=== PATIENT | male | born 1930 | race Caucasian/White ===

== ENCOUNTER 2017-07-27 16:36 | Inpatient (IN) | payer MEDICARE ==
[2017-07-27 17:45] LABS: BASOPHIL % 0.4 % (0.0-0.4); Basophil (Absolute #) 0.03 (0-0.4); Eosinophil % 3.4 % (0.00-5.0); Eosinophil (Absolute #) 0.29 (0-0.5); Granulocyte Absolute (ANC) 5.78 (1.4-6.9); Granulocytes % 68.7 % (36.0-66.0); Hematocrit 42.5 % (42-50); Hemoglobin 13.8 gm/dl (12.5-18.0); Lymphocyte (Absolute #) 1.56 (1.0-4.6); Lymphocytes % 18.5 % (24.0-44.0); Mean Cell Volume 99.5 fl (78-100); Mean Corpuscular Hemoglobin 32.3 pg (26-32); Mean Corpuscular Hgb Concent. 32.5 g/dl (32-36); Mean Platelet Volume 9.9 fl (6-9.5); Monocyte (Absolute #) 0.76 (0.0-1.3); Platelet Count 277 K/mm3 (150-450); Red Blood Count 4.27 M/mm3 (4.1-5.6); Red Cell Distribution Width 13.9 % (11.5-14.0); White Blood Count 8.4 K/mm3 (4.0-10.5)
[2017-07-27 18:03] LABS: ALBUMIN 3.4 g/dL (3.5-5.0); ALKALINE PHOSPHATASE 125 U/L (38-126); ANION GAP 12.3 MEQ/L (5-15); BLOOD UREA NITROGEN 11 mg/dL (9-20); CHLORIDE 106 mmol/L (98-107); Calcium 8.7 mg/dL (8.4-10.2); Carbon Dioxide 27 mmol/L (22-30); Creatinine 1 1.06 mg/dL (0.66-1.25); Potassium 4.1 mmol/L (3.5-5.1); SGOT/AST 15 U/L (17-59); SGPT/ALT 9 U/L (0-50); SODIUM 141 mmol/L (137-145); Total Protein 6.3 g/dL (6.3-8.2)
[2017-07-27] MEDS ORDERED: TYLENOL 325 MG PO PRN (18:19)
--- NOTE | 2017-07-27 18:24 | PCM.HP.ADD ---
Addendum to History & Physical - History & Physical Addendum Addendum to History & Physical: This certifies that the History & Physical in the electronic chart reflects the current health status of the patient. If there are changes in the H&P these changes/exceptions are listed as follows.
[2017-07-27 18:36] LABS: INR 1.05 (0.8-3.0)
[2017-07-27] MEDS: Sodium Chloride 0.9% 1000 ML 1,000 ML IV SCH (20:20)
[2017-07-27 23:38] LABS: Appearance CLEAR (CLEAR); Bilirubin NEGATIVE (NEGATIVE); Blood NEGATIVE Ery/ul (0-5); Glucose NEGATIVE (NEGATIVE); Ketones NEGATIVE (NEGATIVE); Leukocyte Esterase NEGATIVE (NEGATIVE); Nitrite NEGATIVE (NEGATIVE); Protein,Urine Dip NEGATIVE (Negative); Specific Gravity 1.015 (1.005-1.025); Urobilinogen 1 mg/dL (0-1)
--- NOTE | 2017-07-28 08:32 | XRAY ---
Indication: Short of breath. Confusion. Comparison: None PA/lateral chest demonstrates minimal left base subsegmental atelectasis/scarring. Remaining lungs clear. Heart is not enlarged. Bony thorax intact with mild osteopenia and degenerative changes. Impression: Left base atelectasis/scarring. No acute cardiopulmonary abnormalities.
--- NOTE | 2017-07-28 08:37 | XRAY ---
Indication: Confusion. TIA. History dementia. Multiple contiguous axial images obtained through the head without contrast. Comparison: None Age-appropriate global atrophy and minimal periventricular degenerative micro-ischemia bilaterally. No acute intracranial hemorrhage, abnormal extra-axial fluid collection, or mass effect. Fourth ventricle is midline without hydrocephalus. Bony calvarium intact. Visualized paranasal sinuses and mastoid air cells are clear. Impression: Nonacute senile brain. CT DI 69.25
[2017-07-28] MEDS: Namenda 5 MG PO SCH ×2 (09:20→22:05)
[2017-07-28] MEDS: Risperdal 1 MG PO SCH (09:20)
[2017-07-28] MEDS: Aricept 10 MG PO SCH (09:20)
[2017-07-28] MEDS ORDERED: MEMANTINE HCL 28 MG PO SCH (10:00)
--- NOTE | 2017-07-28 10:37 | XRAY ---
Indication: Left sided hemiparesis. Two-dimensional sonogram and color Doppler imaging of the carotid arteries of the neck performed. Comparison: None Examination of the right carotid circulation demonstrates minimal scattered calcified plaquing in the mid to distal common carotid artery, bulb, and proximal internal carotid artery with lesser degree in the external carotid artery. PSV of the CCA is 81 cm/s. PSV of the ICA is 116 cm/s. ICA/CCA ratio is 1.4. Normal antegrade vertebral artery flow. Examination of the left carotid circulation negative for focal plaquing, critical stenosis, or obstruction. PSV of the CCA is 68 cm/s. PSV of the ICA is 80 cm/s. ICA/CCA ratio is 1.2. Normal antegrade vertebral artery flow. 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 Widely patent left caroti circulation. Velocity measurements and ratios are negative for hemodynamically significant flow-limiting stenosis.
--- NOTE | 2017-07-28 10:50 | PCM.NOTE ---
Date and Time: 07/28/17 1048 Subjective Assessment: still some weakness on left side, - Review of Systems Constitutional: No Fever, No Chills Eyes: No Symptoms Ears, Nose, & Throat: No Symptoms Respiratory: No Cough, No Short Of Breath Cardiac: No Chest Pain, No Edema, No Syncope Abdominal/Gastrointestinal: No Abdominal Pain, No Nausea, No Vomiting, No Diarrhea Genitourinary Symptoms: No Dysuria Musculoskeletal: No Back Pain, No Neck Pain Skin: No Rash Neurological: Focal Weakness, No Dizziness, No Sensory Changes Psychological: No Symptoms Endocrine: No Symptoms Hematologic/Lymphatic: No Symptoms Immunological/Allergic: No Symptoms Objective Exam General Appearance: no apparent distress, alert Neurologic Exam: alert, oriented x 3, cooperative, motor deficits, motor weakness (left side), facial droop, slurred speech Skin Exam: normal color, warm, dry Eye Exam: PERRL, EOMI, eyes nml inspection Ears, Nose, Throat Exam: normal ENT inspection, pharynx normal, moist mucous membranes Neck Exam: normal inspection, non-tender, supple, full range of motion Respiratory Exam: normal breath sounds, lungs clear, No respiratory distress Cardiovascular Exam: regular rate/rhythm, normal heart sounds Gastrointestinal/Abdomen Exam: soft, No tenderness, No mass Extremity Exam: normal inspection, normal range of motion Back Exam: normal inspection, normal range of motion, No CVA tenderness, No vertebral tenderness Male Genitalia Exam: deferred Rectal Exam: deferred OBJECTIVE DATA Vital Signs: Vital Signs - 24 hr Temp Pulse Resp BP Pulse Ox 07/28/17 08:00 97.6 F 59 L 18 126/67 96 07/28/17 04:00 97.4 F 55 L 16 130/63 95 07/28/17 00:00 97.6 F 53 L 17 138/71 96 07/27/17 20:00 98.9 F 65 20 159/85 96 07/27/17 18:07 98.9 F 65 20 159/85 96 07/27/17 17:14 98.9 F 65 20 159/85 96 Oxygen-Last 24 hours O2 Percentage 2 Liters = 28% Pain Assessment - Last Documented Pain Scale Used 0-10 Pain Scale Intake and Output: Intake & Output 07/25/17 07/26/17 07/27/17 07/28/17 11:59 11:59 11:59 11:59 Intake Total 1029 Output Total 450 Balance 579 Weight 71 kg Lab Results: Accuchecks Date 07/28/17 Time 07:30 Accucheck Value: 99 Accucheck Value: 150 Lab Results-Last 24 Hours 07/27/17 07/27/17 07/27/17 Range/Units 17:40 17:40 17:40 WBC 8.4 (4.0-10.5) K/mm3 RBC 4.27 (4.1-5.6) M/mm3 Hgb 13.8 (12.5-18.0) gm/dl Hct 42.5 (42-50) % MCV 99.5 (78-100) fl MCH 32.3 H (26-32) pg MCHC 32.5 (32-36) g/dl RDW 13.9 (11.5-14.0) % Plt Count 277 (150-450) K/mm3 MPV 9.9 H (6-9.5) fl Gran % 68.7 H (36.0-66.0) % Eos # (Auto) 0.29 (0-0.5) Absolute Lymphs (auto) 1.56 (1.0-4.6) Absolute Monos (auto) 0.76 (0.0-1.3) Lymphocytes % 18.5 L (24.0-44.0) % Monocytes % 9.0 (0.0-12.0) % Eosinophils % 3.4 (0.00-5.0) % Basophils % 0.4 (0.0-0.4) % Absolute Granulocytes 5.78 (1.4-6.9) Basophils # 0.03 (0-0.4) PT (8.83-12.87) SECONDS INR (0.8-3.0) Sodium 141 (137-145) mmol/L Potassium 4.1 (3.5-5.1) mmol/L Chloride 106 (98-107) mmol/L Carbon Dioxide 27 (22-30) mmol/L Anion Gap 12.3 (5-15) MEQ/L BUN 11 (9-20) mg/dL Creatinine 1.06 (0.66-1.25) mg/dL Estimated GFR > 60.0 ML/MIN Hemoglobin A1c (4.5-6.0) % Calcium 8.7 (8.4-10.2) mg/dL Total Bilirubin 0.60 (0.2-1.3) mg/dL AST 15 L (17-59) U/L ALT 9 (0-50) U/L Alkaline Phosphatase 125 (38-126) U/L NT-Pro-B Natriuret Pep 398 (0-1800) pg/mL Serum Total Protein 6.3 (6.3-8.2) g/dL Albumin 3.4 L (3.5-5.0) g/dL TSH 3rd Generation 1.970 (0.47-4.68) mIU/L Ur Collection Type Urine Color (YELLOW) Urine Appearance (CLEAR) Urine pH (5-6) Ur Specific [place] (1.005-1.025) Urine Protein (Negative) Urine Ketones (NEGATIVE) Urine Blood (0-5) Yimi/ul Urine Nitrite (NEGATIVE) Urine Bilirubin (NEGATIVE) Urine Urobilinogen (0-1) mg/dL Ur Leukocyte Esterase (NEGATIVE) Urine Glucose (NEGATIVE) mg/dL Specimen Received 07/27/17 07/27/17 07/27/17 Range/Units 17:40 17:40 23:25 WBC (4.0-10.5) K/mm3 RBC (4.1-5.6) M/mm3 Hgb (12.5-18.0) gm/dl Hct (42-50) % MCV (78-100) fl MCH (26-32) pg MCHC (32-36) g/dl RDW (11.5-14.0) % Plt Count (150-450) K/mm3 MPV (6-9.5) fl Gran % (36.0-66.0) % Eos # (Auto) (0-0.5) Absolute Lymphs (auto) (1.0-4.6) Absolute Monos (auto) (0.0-1.3) Lymphocytes % (24.0-44.0) % Monocytes % (0.0-12.0) % Eosinophils % (0.00-5.0) % Basophils % (0.0-0.4) % Absolute Granulocytes (1.4-6.9) Basophils # (0-0.4) PT 12.2 (8.83-12.87) SECONDS INR 1.05 (0.8-3.0) Sodium (137-145) mmol/L Potassium (3.5-5.1) mmol/L Chloride (98-107) mmol/L Carbon Dioxide (22-30) mmol/L Anion Gap (5-15) MEQ/L BUN (9-20) mg/dL Creatinine (0.66-1.25) mg/dL Estimated GFR ML/MIN Hemoglobin A1c 5.50 (4.5-6.0) % Calcium (8.4-10.2) mg/dL Total Bilirubin (0.2-1.3) mg/dL AST (17-59) U/L ALT (0-50) U/L Alkaline Phosphatase (38-126) U/L NT-Pro-B Natriuret Pep (0-1800) pg/mL Serum Total Protein (6.3-8.2) g/dL Albumin (3.5-5.0) g/dL TSH 3rd Generation (0.47-4.68) mIU/L Ur Collection Type VOID Urine Color YELLOW (YELLOW) Urine Appearance CLEAR (CLEAR) Urine pH 6.0 (5-6) Ur Specific [place] 1.015 (1.005-1.025) Urine Protein NEGATIVE (Negative) Urine Ketones NEGATIVE (NEGATIVE) Urine Blood NEGATIVE (0-5) Yimi/ul Urine Nitrite NEGATIVE (NEGATIVE) Urine Bilirubin NEGATIVE (NEGATIVE) Urine Urobilinogen 1 (0-1) mg/dL Ur Leukocyte Esterase NEGATIVE (NEGATIVE) Urine Glucose NEGATIVE (NEGATIVE) mg/dL Specimen Received 07/27/17 1910 Radiology Exams: Radiology Procedures Category Date Time Status CAROTID BILATERAL [US] Routine Exams 07/28/17 10:22 Completed CHEST 2 VIEWS (PA AND LAT) Routine Exams 07/27/17 17:35 Completed ECHO W/2D AND DOPPLER [US] Routine Exams 07/28/17 09:04 Taken HEAD WITHOUT CONTRAST [CT] Routine Exams 07/27/17 17:35 Completed Assessment/Plan (1) Left hemiparesis Current Visit: Yes Status: Acute Code(s): G81.94 - HEMIPLEGIA, UNSPECIFIED AFFECTING LEFT NONDOMINANT SIDE (2) TIA (transient ischemic attack) Current Visit: Yes Status: Acute Onset Date: ~07/28/17 Qualifiers: Transient cerebral ischemia type: unspecified Qualified Code(s): G45.9 - Transient cerebral ischemic attack, unspecified
--- NOTE | 2017-07-28 12:18 | PCM.HP ---
History of Present Illness - Chief Complaint Chief Complaint: weakness on left side of body History of Present Illness: is a 87 year old male.started having difficulty on left side of body, with loss of strength. Patient caregiver found him with slurred speech, unable to walk properly - Review of Systems Constitutional: Lethargy, Weakness, No Fever, No Chills Eyes: No Symptoms Ears, Nose, & Throat: No Symptoms Respiratory: No Cough, No Short Of Breath Cardiac: No Chest Pain, No Edema, No Syncope Abdominal/Gastrointestinal: No Abdominal Pain, No Nausea, No Vomiting, No Diarrhea Genitourinary Symptoms: No Dysuria Musculoskeletal: No Back Pain, No Neck Pain Skin: No Rash Neurological: Dizziness, Focal Weakness, Lethargy, Parasthesia, Sensory Changes , Speech Changes Psychological: Depression Endocrine: No Symptoms Hematologic/Lymphatic: No Symptoms Immunological/Allergic: No Symptoms Medications & Allergies Home Medications: Home Medication List Donepezil HCl 10 mg [Aricept 10 MG] 10 mg PO DAILY 07/27/17 [History Confirmed 07/27/17] Memantine HCl [Memantine HCl ER] 28 mg PO DAILY 07/27/17 [History Confirmed ] Risperidone 1 mg [Risperdal 1 MG] 1 mg PO DAILY 07/27/17 [History Confirmed 07/27/17] Timolol Maleate [Timoptic] 5 ml OP DAILY 07/27/17 [History Confirmed 07/27/17] Allergies/Adverse Reactions: Allergies Allergy/AdvReac Type Severity Reaction Status Date / Time No Known Drug Allergies Allergy Unverified 07/27/17 16:46 - Past Medical History Past Medical History: Yes Neurological History: No Pertinent History ENT History: Cataracts, Glaucoma Cardiac History: No Pertinent History Respiratory History: No Pertinent History Endocrine Medical History: No Pertinent History Musculoskelatal History: No Pertinent History GI Medical History: No Pertinent History History: No Pertinent History Pyscho-Social History: Anxiety, Depression Male Reproductive Disorders: No Pertinent History - Past Surgical History Past Surgical History: Yes Neuro Surgical History: No Pertinent History Cardiac History: No Pertinent History Respiratory Surgery: No Pertinent History GI Surgical History: Appendectomy Genitourinary Surgical Hx: No Pertinent History Musculskeletal Surgical Hx: No Pertinent History Male Surgical History: No Pertinent History - Social History Smoking Status: Never smoker Exposure to second hand smoke: Yes Alcohol: None - Physical Exam Vital Signs: Vital Signs - 24 hr Temp Pulse Resp BP Pulse Ox 07/28/17 12:00 18 07/28/17 08:00 97.6 F 59 L 18 126/67 96 07/28/17 04:00 97.4 F 55 L 16 130/63 95 07/28/17 00:00 97.6 F 53 L 17 138/71 96 07/27/17 20:00 98.9 F 65 20 159/85 96 07/27/17 18:07 98.9 F 65 20 159/85 96 07/27/17 17:14 98.9 F 65 20 159/85 96 Oxygen-Last 24 hours O2 Percentage 2 Liters = 28% General Appearance: no apparent distress, alert Neurologic Exam: alert, motor deficits, sensory deficit, disoriented, facial droop, abnormal crawler tractor operator II-XII Eye Exam: PERRL/EOMI, eyes nml inspection Ears, Nose, Throat Exam: normal ENT inspection, TMs normal, pharynx normal, moist mucous membranes Neck Exam: normal inspection, non-tender, supple, full range of motion Respiratory Exam: normal breath sounds, lungs clear, No respiratory distress Cardiovascular Exam: regular rate/rhythm, normal heart sounds, normal peripheral pulses Gastrointestinal/Abdomen Exam: soft, normal bowel sounds, No tenderness, No mass Back Exam: normal inspection, normal range of motion, No CVA tenderness, No vertebral tenderness Extremity Exam: normal inspection, normal range of motion, pelvis stable Skin Exam: normal color, warm, dry, No rash Lymphatic Exam: No adenopathy Results - Labs Lab/Micro Results: Accuchecks Date 07/28/17 Time 07:30 Accucheck Value: 99 Accucheck Value: 150 Lab Results-Last 24 Hours 07/27/17 07/27/17 07/27/17 Range/Units 17:40 17:40 17:40 WBC 8.4 (4.0-10.5) K/mm3 RBC 4.27 (4.1-5.6) M/mm3 Hgb 13.8 (12.5-18.0) gm/dl Hct 42.5 (42-50) % MCV 99.5 (78-100) fl MCH 32.3 H (26-32) pg MCHC 32.5 (32-36) g/dl RDW 13.9 (11.5-14.0) % Plt Count 277 (150-450) K/mm3 MPV 9.9 H (6-9.5) fl Gran % 68.7 H (36.0-66.0) % Eos # (Auto) 0.29 (0-0.5) Absolute Lymphs (auto) 1.56 (1.0-4.6) Absolute Monos (auto) 0.76 (0.0-1.3) Lymphocytes % 18.5 L (24.0-44.0) % Monocytes % 9.0 (0.0-12.0) % Eosinophils % 3.4 (0.00-5.0) % Basophils % 0.4 (0.0-0.4) % Absolute Granulocytes 5.78 (1.4-6.9) Basophils # 0.03 (0-0.4) PT (8.83-12.87) SECONDS INR (0.8-3.0) Sodium 141 (137-145) mmol/L Potassium 4.1 (3.5-5.1) mmol/L Chloride 106 (98-107) mmol/L Carbon Dioxide 27 (22-30) mmol/L Anion Gap 12.3 (5-15) MEQ/L BUN 11 (9-20) mg/dL Creatinine 1.06 (0.66-1.25) mg/dL Estimated GFR > 60.0 ML/MIN Hemoglobin A1c (4.5-6.0) % Calcium 8.7 (8.4-10.2) mg/dL Total Bilirubin 0.60 (0.2-1.3) mg/dL AST 15 L (17-59) U/L ALT 9 (0-50) U/L Alkaline Phosphatase 125 (38-126) U/L NT-Pro-B Natriuret Pep 398 (0-1800) pg/mL Serum Total Protein 6.3 (6.3-8.2) g/dL Albumin 3.4 L (3.5-5.0) g/dL TSH 3rd Generation 1.970 (0.47-4.68) mIU/L Ur Collection Type Urine Color (YELLOW) Urine Appearance (CLEAR) Urine pH (5-6) Ur Specific [place] (1.005-1.025) Urine Protein (Negative) Urine Ketones (NEGATIVE) Urine Blood (0-5) Yimi/ul Urine Nitrite (NEGATIVE) Urine Bilirubin (NEGATIVE) Urine Urobilinogen (0-1) mg/dL Ur Leukocyte Esterase (NEGATIVE) Urine Glucose (NEGATIVE) mg/dL Specimen Received 07/27/17 07/27/17 07/27/17 Range/Units 17:40 17:40 23:25 WBC (4.0-10.5) K/mm3 RBC (4.1-5.6) M/mm3 Hgb (12.5-18.0) gm/dl Hct (42-50) % MCV (78-100) fl MCH (26-32) pg MCHC (32-36) g/dl RDW (11.5-14.0) % Plt Count (150-450) K/mm3 MPV (6-9.5) fl Gran % (36.0-66.0) % Eos # (Auto) (0-0.5) Absolute Lymphs (auto) (1.0-4.6) Absolute Monos (auto) (0.0-1.3) Lymphocytes % (24.0-44.0) % Monocytes % (0.0-12.0) % Eosinophils % (0.00-5.0) % Basophils % (0.0-0.4) % Absolute Granulocytes (1.4-6.9) Basophils # (0-0.4) PT 12.2 (8.83-12.87) SECONDS INR 1.05 (0.8-3.0) Sodium (137-145) mmol/L Potassium (3.5-5.1) mmol/L Chloride (98-107) mmol/L Carbon Dioxide (22-30) mmol/L Anion Gap (5-15) MEQ/L BUN (9-20) mg/dL Creatinine (0.66-1.25) mg/dL Estimated GFR ML/MIN Hemoglobin A1c 5.50 (4.5-6.0) % Calcium (8.4-10.2) mg/dL Total Bilirubin (0.2-1.3) mg/dL AST (17-59) U/L ALT (0-50) U/L Alkaline Phosphatase (38-126) U/L NT-Pro-B Natriuret Pep (0-1800) pg/mL Serum Total Protein (6.3-8.2) g/dL Albumin (3.5-5.0) g/dL TSH 3rd Generation (0.47-4.68) mIU/L Ur Collection Type VOID Urine Color YELLOW (YELLOW) Urine Appearance CLEAR (CLEAR) Urine pH 6.0 (5-6) Ur Specific [place] 1.015 (1.005-1.025) Urine Protein NEGATIVE (Negative) Urine Ketones NEGATIVE (NEGATIVE) Urine Blood NEGATIVE (0-5) Yimi/ul Urine Nitrite NEGATIVE (NEGATIVE) Urine Bilirubin NEGATIVE (NEGATIVE) Urine Urobilinogen 1 (0-1) mg/dL Ur Leukocyte Esterase NEGATIVE (NEGATIVE) Urine Glucose NEGATIVE (NEGATIVE) mg/dL Specimen Received 07/27/17 2315 Accuchecks Date 07/28/17 Time 07:30 Accucheck Value: 99 Accucheck Value: 150 - Radiology Impressions Radiology Exams & Impressions: Radiology Procedures Category Date Time Status CAROTID BILATERAL [US] Routine Exams 07/28/17 10:22 Completed CHEST 2 VIEWS (PA AND LAT) Routine Exams 07/27/17 17:35 Completed ECHO W/2D AND DOPPLER [US] Routine Exams 07/28/17 09:04 Taken HEAD WITHOUT CONTRAST [CT] Routine Exams 07/27/17 17:35 Completed Assessment/Plan (1) Left hemiparesis Current Visit: Yes Status: Acute Code(s): G81.94 - HEMIPLEGIA, UNSPECIFIED AFFECTING LEFT NONDOMINANT SIDE (2) TIA (transient ischemic attack) Current Visit: Yes Status: Acute Onset Date: ~07/28/17 Qualifiers: Transient cerebral ischemia type: unspecified Qualified Code(s): G45.9 - Transient cerebral ischemic attack, unspecified
[2017-07-28] MEDS: PLAVIX 75 MG Tablet PO SCH (12:51)
[2017-07-28] MEDS: TIMOPTIC 0.5% 5 ML OPHTHALMIC OP SCH (14:20)
--- NOTE | 2017-07-28 14:32 | XRAY ---
Indication: Confusion. Possible CVA. Sagittal, coronal, and axial MRI brain was performed using pre-and post T1, T2, FLAIR, diffusion, and ADC sequences. 10 cc Magnevist contrast used. Comparison: None Prominent bilateral basal ganglia Virchow Benedicto spaces. There is age-appropriate global atrophy and mild periventricular degenerative micro-ischemia signal bilaterally. 3-4 mm subcortical focus of restricted signal in the left frontal lobe favoring acute micro-ischemia. No acute intracranial hemorrhage, abnormal extra-axial fluid collection, or mass effect. Following gadolinium, there is no abnormal enhancing intra or extra-axial mass. Fourth ventricle is midline without hydrocephalus. 7/8 cranial nerve complex bilaterally symmetric. Normal flow void signal within the major intracerebral circulation. Dolichoectatic distal left vertebral artery. Normal appearing craniocervical junction and sella turcica. Paranasal sinuses are clear. Impression: 1. Tiny acute micro-ischemia in the left frontal lobe. No acute hemorrhage or mass effect. 2. Normal aging brain as evidenced by atrophy and degenerative micro-ischemia. 3. Negative contrast exam.
--- NOTE | 2017-07-29 08:59 | PCM.NOTE ---
Date and Time: 07/29/17857 Subjective Assessment: still some weakness on left side - Review of Systems Constitutional: No Fever, No Chills Eyes: No Symptoms Ears, Nose, & Throat: No Symptoms Respiratory: No Cough, No Short Of Breath Cardiac: No Chest Pain, No Edema, No Syncope Abdominal/Gastrointestinal: No Abdominal Pain, No Nausea, No Vomiting, No Diarrhea Genitourinary Symptoms: No Dysuria Musculoskeletal: No Back Pain, No Neck Pain Skin: No Rash Neurological: Focal Weakness, Gait Changes, No Dizziness, No Sensory Changes Psychological: No Symptoms Endocrine: No Symptoms Hematologic/Lymphatic: No Symptoms Immunological/Allergic: No Symptoms Objective Exam General Appearance: no apparent distress, alert Neurologic Exam: alert, oriented x 3, cooperative, normal mood/affect, sensation nml, motor deficits Skin Exam: normal color, warm, dry Eye Exam: PERRL, EOMI, eyes nml inspection Ears, Nose, Throat Exam: normal ENT inspection, pharynx normal, moist mucous membranes Neck Exam: normal inspection, non-tender, supple, full range of motion Respiratory Exam: normal breath sounds, lungs clear, No respiratory distress Cardiovascular Exam: regular rate/rhythm, normal heart sounds Gastrointestinal/Abdomen Exam: soft, No tenderness, No mass Extremity Exam: normal inspection, normal range of motion Back Exam: normal inspection, normal range of motion, No CVA tenderness, No vertebral tenderness Male Genitalia Exam: deferred Rectal Exam: deferred OBJECTIVE DATA Vital Signs: Vital Signs - 24 hr Temp Pulse Resp BP Pulse Ox 07/29/17 07:29 97.9 F 56 L 18 141/76 96 07/29/17 04:00 98.2 F 60 18 169/83 96 07/29/17 00:00 16 07/28/17 23:30 98.2 F 69 16 143/78 95 07/28/17 20:03 98.4 F 65 18 168/81 96 07/28/17 20:00 18 07/28/17 16:00 98.2 F 54 L 18 198/85 97 07/28/17 12:00 97.8 F 59 L 18 179/84 96 Pain Assessment - Last Documented Pain Scale Used 0-10 Pain Scale Intake and Output: Intake & Output 07/26/17 07/27/17 07/28/17 07/29/17 11:59 11:59 11:59 11:59 Intake Total 1029 1549 Output Total 450 0610 Balance 579 -301 Weight 71 kg Radiology Exams: Radiology Procedures Category Date Time Status CAROTID BILATERAL [US] Routine Exams 07/28/17 10:22 Completed CHEST 2 VIEWS (PA AND LAT) Routine Exams 07/27/17 17:35 Completed ECHO W/2D AND DOPPLER [US] Routine Exams 07/28/17 09:04 Taken HEAD WITHOUT CONTRAST [CT] Routine Exams 07/27/17 17:35 Completed MRI BRAIN W & W/O CONTRAST [MRI] Urgent Exams 07/28/17 12:22 Completed Multi-Disciplinary Progress Notes: Multi-Disciplinary Progress Notes 07/28/17 12:45 (created 07/28/17 13:33) Case Management Note by Peace Ramsey REFERRAL CALLED TO [facility]. FAXED INFORMATION PER REQUEST. SHERICE REPORTS THAT THEY DON'T HAVE ANY MALE BEDS AT THIS TIME. WILL CALL BACK WITH INFORMATION REGARDING BED AVAILABILITY. Initialized on 07/28/17 13:33 - END OF NOTE 07/28/17 12:15 (created 07/28/17 13:28) Case Management Note by Peace Ramsey DR. ROUNDED AND EVALUATED PT, PLAN FOR MRI HEAD TODAY PT CONTINUES TO DISPLAY L SIDE WEAKNESS AND NOTED L FACIAL DROOP. ADDING PLAVIX 75MG PO DAILY. DISCUSSED REHAB STAY WITH PT. WILL PLAN TO TRANSITION TO [facility] ON DISCHARGE. Initialized on 07/28/17 13:28 - END OF NOTE Assessment/Plan (1) Left hemiparesis Current Visit: Yes Status: Acute Assessment & Plan: improving Code(s): G81.94 - HEMIPLEGIA, UNSPECIFIED AFFECTING LEFT NONDOMINANT SIDE (2) TIA (transient ischemic attack) Current Visit: Yes Status: Acute Onset Date: ~07/28/17 Qualifiers: Transient cerebral ischemia type: unspecified Qualified Code(s): G45.9 - Transient cerebral ischemic attack, unspecified
[2017-07-29] MEDS: Aricept 10 MG PO SCH (09:26)
[2017-07-29] MEDS: Namenda 5 MG PO SCH ×2 (09:26→22:04)
[2017-07-29] MEDS: PLAVIX 75 MG Tablet PO SCH (09:26)
[2017-07-29] MEDS: Risperdal 1 MG PO SCH (09:26)
[2017-07-29] MEDS: TIMOPTIC 0.5% 5 ML OPHTHALMIC OP SCH (09:27)
[2017-07-29] MEDS: Sodium Chloride 0.9% 1000 ML 1,000 ML IV SCH (11:51)
[2017-07-30] MEDS: Sodium Chloride 0.9% 1000 ML 1,000 ML IV SCH (07:59)
[2017-07-30 08:14] VITALS: O2SAT 96
--- NOTE | 2017-07-30 09:18 | PCM.NOTE ---
Date and Time: 07/30/17915 Subjective Assessment: doing little better - Review of Systems Constitutional: No Fever, No Chills Eyes: No Symptoms Ears, Nose, & Throat: No Symptoms Respiratory: No Cough, No Short Of Breath Cardiac: No Chest Pain, No Edema, No Syncope Abdominal/Gastrointestinal: No Abdominal Pain, No Nausea, No Vomiting, No Diarrhea Genitourinary Symptoms: No Dysuria Musculoskeletal: No Back Pain, No Neck Pain Skin: No Rash Neurological: Focal Weakness, No Dizziness, No Sensory Changes Psychological: No Symptoms Endocrine: No Symptoms Hematologic/Lymphatic: No Symptoms Immunological/Allergic: No Symptoms Objective Exam General Appearance: no apparent distress, alert Neurologic Exam: alert, oriented x 3, cooperative, normal mood/affect, sensation nml, motor deficits Skin Exam: normal color, warm, dry Eye Exam: PERRL, EOMI, eyes nml inspection Ears, Nose, Throat Exam: normal ENT inspection, pharynx normal, moist mucous membranes Neck Exam: normal inspection, non-tender, supple, full range of motion Respiratory Exam: normal breath sounds, lungs clear, No respiratory distress Cardiovascular Exam: regular rate/rhythm, normal heart sounds Gastrointestinal/Abdomen Exam: soft, No tenderness, No mass Extremity Exam: normal inspection, normal range of motion Back Exam: normal inspection, normal range of motion, No CVA tenderness, No vertebral tenderness Male Genitalia Exam: deferred Rectal Exam: deferred OBJECTIVE DATA Vital Signs: Vital Signs - 24 hr Temp Pulse Resp BP Pulse Ox 07/30/17 08:00 98.2 F 58 L 16 140/71 96 07/30/17 04:23 97.9 F 66 18 118/60 97 07/30/17 04:00 16 07/30/17 00:00 16 07/29/17 23:46 98.2 F 65 16 114/65 97 07/29/17 20:09 98.7 F 70 18 171/83 97 07/29/17 20:00 18 07/29/17 16:00 98.5 F 68 16 159/77 97 07/29/17 12:00 18 07/29/17 11:26 97.9 F 60 18 158/78 94 L Pain Assessment - Last Documented Pain Intensity 0 Pain Scale Used 0-10 Pain Scale Intake and Output: Intake & Output 07/27/17 07/28/17 07/29/17 07/30/17 11:59 11:59 11:59 11:59 Intake Total 1029 1549 1513 Output Total 034 3670 425 Balance 579 -301 1088 Weight 71 kg Radiology Exams: Radiology Procedures Category Date Time Status CAROTID BILATERAL [US] Routine Exams 07/28/17 10:22 Completed ECHO W/2D AND DOPPLER [US] Routine Exams 07/28/17 09:04 Taken MRI BRAIN W & W/O CONTRAST [MRI] Urgent Exams 07/28/17 12:22 Completed Assessment/Plan (1) Left hemiparesis Current Visit: Yes Status: Acute Code(s): G81.94 - HEMIPLEGIA, UNSPECIFIED AFFECTING LEFT NONDOMINANT SIDE (2) TIA (transient ischemic attack) Current Visit: Yes Status: Acute Onset Date: ~07/28/17 Qualifiers: Transient cerebral ischemia type: unspecified Qualified Code(s): G45.9 - Transient cerebral ischemic attack, unspecified
[2017-07-30] MEDS: PLAVIX 75 MG Tablet PO SCH (09:30)
[2017-07-30] MEDS: Aricept 10 MG PO SCH (09:30)
[2017-07-30] MEDS: TIMOPTIC 0.5% 5 ML OPHTHALMIC OP SCH (09:30)
[2017-07-30] MEDS: Risperdal 1 MG PO SCH (09:30)
[2017-07-30] MEDS: Namenda 5 MG PO SCH (09:30)
--- NOTE | 2017-07-30 10:02 | PCM.DS ---
Discharge Summary Date of Admission: 07/27/17 16:36 Admitting Physician: JACKIE MARTINEZ Primary Care Provider: JACKIE MARTINEZ Allergies Allergies No Known Drug Allergies Allergy (Unverified 07/27/17 16:46) Hospital Summary - Hospital Course Hospital Course: Chief Complaint Diagnosis weakness on left side of body Allergies Allergy/AdvReac Type Severity Reaction Status Date / Time No Known Drug Allergies Allergy Unverified 07/27/17 16:46 Vital Signs (Last 24 hours) Temp Pulse Resp BP Pulse Ox 07/30/17 08:00 98.2 F 58 L 16 140/71 96 07/30/17 04:23 97.9 F 66 18 118/60 97 07/30/17 04:00 16 07/30/17 00:00 16 07/29/17 23:46 98.2 F 65 16 114/65 97 07/29/17 20:09 98.7 F 70 18 171/83 97 07/29/17 20:00 18 07/29/17 16:00 98.5 F 68 16 159/77 97 07/29/17 12:00 18 07/29/17 11:26 97.9 F 60 18 158/78 94 L Home Medications Medication Instructions Recorded Confirmed Last Taken Type Donepezil HCl 10 mg [Aricept 10 10 mg PO DAILY 07/27/17 07/27/17 07/27/17 History MG] Memantine HCl [Memantine HCl ER] 28 mg PO DAILY 07/27/17 07/27/17 07/27/17 History Risperidone 1 mg [Risperdal 1 1 mg PO DAILY 07/27/17 07/27/17 07/27/17 History MG] Timolol Maleate [Timoptic] 5 ml OP DAILY 07/27/17 07/27/17 07/27/17 History Current Medications Generic Name Dose Route Start Last Admin Trade Name Freq PRN Reason Stop Dose Admin Acetaminophen 325 mg 07/27/17 18:19 Tylenol 325 Mg PO 08/26/17 18:18 Q4H PRN PRN PAIN, FEVER, HEADACHE Clopidogrel Bisulfate 75 mg 07/28/17 13:00 07/30/17 09:30 Plavix 75 Mg Tablet PO 08/27/17 12:59 75 mg DAILY EMILY Administration Donepezil HCl 10 mg 07/28/17 10:00 07/30/17 09:30 Aricept 10 Mg PO 08/27/17 09:59 10 mg DAILY EMILY Administration Sodium Chloride 1,000 mls @ 50 mls/hr 07/27/17 18:30 07/30/17 07:59 Sodium Chloride 0.9% 1000 Ml IV 08/26/17 18:29 50 mls/hr .Q20H EMILY Administration Memantine 10 mg 07/28/17 10:00 07/30/17 09:30 Namenda 5 Mg PO 08/27/17 09:59 10 mg BID EMILY Administration Risperidone 1 mg 07/28/17 10:00 07/30/17 09:30 Risperdal 1 Mg PO 08/27/17 09:59 1 mg DAILY EMILY Administration Timolol Maleate 5 ml 07/28/17 10:00 07/30/17 09:30 Timoptic 0.5% 5 Ml Ophthalmic OP 08/27/17 09:59 5 ml DAILY EMILY Administration Intake & Output (Last 24 hours) 07/27/17 07/28/17 07/29/17 07/30/17 11:59 11:59 11:59 11:59 Intake Total 1029 1549 1513 Output Total 450 1850 425 Balance 579 -301 1088 Weight 71 kg Microbiology Results (Last 24 hours) 07/27/17 18:50 Blood Blood Culture Gram Stain - Pending 07/27/17 18:50 Blood Blood Culture - Preliminary NO GROWTH TO DATE - Vitals & Intake/Output Vital Signs: Vital Signs Temperature 98.2 F 07/30/17 08:00 Pulse Rate 58 L 07/30/17 08:00 Respiratory Rate 16 07/30/17 08:00 Blood Pressure 140/71 07/30/17 08:00 O2 Sat by Pulse Oximetry 96 07/30/17 08:00 Oxygen-Last Documented O2 Percentage 2 Liters = 28% Intake & Output: Intake & Output 07/27/17 07/28/17 07/29/17 07/30/17 11:59 11:59 11:59 11:59 Intake Total 1029 1549 1513 Output Total 450 1850 425 Balance 579 -301 1088 Weight 71 kg - Lab Result Diagrams: 07/27/17 17:40 07/27/17 17:40 Micro Results-Entire Visit: Microbiology 07/27/17 18:50 Blood Culture - Preliminary Blood NO GROWTH TO DATE - Radiology Exams Ordered Rad Exams-Entire Visit: Radiology Procedures Category Date Time Status CAROTID BILATERAL [US] Routine Exams 07/28/17 10:22 Completed ECHO W/2D AND DOPPLER [US] Routine Exams 07/28/17 09:04 Taken MRI BRAIN W & W/O CONTRAST [MRI] Urgent Exams 07/28/17 12:22 Completed - Procedures and Test Procedures and Tests throughout Hospitalization: Therapy Orders & Screens 07/27/17 18:17 EKG STAT Comment: Diagnosis: TIA 07/27/17 18:18 PT Eval & Treat (MD Order) ROUTINE Reason for Eval:: strengthening Diagnosis: TIA Discharge Exam General Appearance: no apparent distress, alert Neurologic Exam: alert, oriented x 3, cooperative, normal mood/affect, nml cerebellar function, sensation nml, No motor deficits Skin Exam: normal color, warm, dry Eye Exam: PERRL, EOMI, eyes nml inspection Ears, Nose, Throat Exam: normal ENT inspection, pharynx normal, moist mucous membranes Neck Exam: normal inspection, non-tender, supple, full range of motion Respiratory Exam: normal breath sounds, lungs clear, No respiratory distress Cardiovascular Exam: regular rate/rhythm, normal heart sounds Gastrointestinal/Abdomen Exam: soft, No tenderness, No mass Extremity Exam: normal inspection, normal range of motion Back Exam: normal inspection, normal range of motion, No CVA tenderness, No vertebral tenderness Male Genitalia Exam: deferred Rectal Exam: deferred Final Diagnosis/Problem List - Final Discharge Diagnosis/Problem (1) Left hemiparesis Current Visit: Yes Status: Acute (2) TIA (transient ischemic attack) Current Visit: Yes Status: Acute Onset Date: ~07/28/17 - Discharge Discharge Date: 07/30/17 Disposition: Swing Bed @ [facility] Condition: Stable Prescriptions: No Action Risperidone 1 mg [Risperdal 1 MG] 1 mg PO DAILY Memantine HCl [Memantine HCl ER] 28 mg PO DAILY Donepezil HCl 10 mg [Aricept 10 MG] 10 mg PO DAILY Timolol Maleate [Timoptic] 5 ml OP DAILY Follow up with: JACKIE MARTINEZ MD [Primary Care Provider] - 1 Week
[2017-07-30 11:28] VITALS: BP 130/69; PULSE 62
[2017-07-30] MEDS ORDERED: ROCEPHIN 1 Gm-D5w 50 ml Bag** 1 G/50 ML IVPB IV SCH (12:00)
--- NOTE | 2017-08-03 11:10 | ECHO ---
Transthoracic echocardiographic examination and color Doppler was done on 07/28/2017. INDICATION: Stroke. IMPRESSION: 1) NO DEFINITE REGIONAL WALL MOTION ABNORMALITY. ESTIMATED GLOBAL LEFT VENTRICULAR EJECTION FRACTION ABOUT 60%. 2) MILD MITRAL REGURGITATION. 3) TRACE TRICUSPID REGURGITATION. RIGHT VENTRICULAR SYSTOLIC PRESSURE OF 36 MM OF MERCURY. 4) TRACE PULMONIC INSUFFICIENCY. 5) LEFT ATRIAL ENLARGEMENT. 6) LEFT VENTRICULAR DIASTOLIC DYSFUNCTION. 7) LEFT VENTRICULAR HYPERTROPHY. The left ventricle is visualized and demonstrated adequate motion of all the segments. Estimated global left ventricular ejection fraction is 60%. There is mild left ventricular hypertrophy. The mitral valve is seen and this opens adequately. There is mild mitral regurgitation. Left atrium is mildly enlarged. The aortic valve is sclerotic. The right side chambers are normal. There is trace tricuspid regurgitation. Right ventricular systolic pressure of 26 mm of Mercury. There is trace pulmonic insufficiency. Tissue Doppler study of the lateral mitral annulus is suggestive of left ventricular diastolic dysfunction.
== END 2017-07-30 12:30 | disposition swing bed (61) | DRG 57 ==
LOC: MERGE 16:36 → MED SURG 16:36
PROVIDERS: ADMIT General Practice; ATTEND General Practice
DX: G81.94 Hemiplegia, unspecified affecting left nondominant side (principal); G45.9 Transient cerebral ischemic attack, unspecified; F41.8 Other specified anxiety disorders
CPT/HCPCS: 36415; 70450; 70553; 71046; 80053; 81002; 83036; 83880; 84443; 85025; 85610; 87040; 93005; 93306; 93880; A9270-GY

== ENCOUNTER 2017-07-30 12:30 | Inpatient (IN) | payer MEDICARE ==
[2017-07-30] MEDS ORDERED: TYLENOL 325 MG PO PRN (13:24)
[2017-07-30] MEDS ORDERED: ROCEPHIN 1 Gm-D5w 50 ml Bag** 1 G/50 ML IVPB IV SCH (13:24)
[2017-07-30] MEDS ORDERED: Sodium Chloride 0.9% 10 ML FLUSH Syringe IV PRN (13:30)
[2017-07-30] MEDS: Sodium Chloride 0.9% 10 ML FLUSH Syringe IV SCH ×2 (14:00→22:41)
[2017-07-30] MEDS: ROCEPHIN 1 Gm-D5w 50 ml Bag** 1 G/50 ML IVPB IV SCH (14:19)
[2017-07-30 18:22] LABS: Appearance CLEAR (CLEAR); Bilirubin NEGATIVE (NEGATIVE); Blood 250 Ery/ul (0-5); Glucose NEGATIVE (NEGATIVE); Ketones NEGATIVE (NEGATIVE); Leukocyte Esterase NEGATIVE (NEGATIVE); Nitrite NEGATIVE (NEGATIVE); Protein,Urine Dip NEGATIVE (Negative); Urobilinogen NORMAL mg/dL (0-1)
[2017-07-30 18:23] LABS: RBC 50-100 /HPF (0-2)
[2017-07-30] MEDS: Namenda 5 MG PO SCH (22:40)
[2017-07-31] MEDS ORDERED: D50W 50 ml Abboject IV ONE (05:50)
[2017-07-31] MEDS: Sodium Chloride 0.9% 10 ML FLUSH Syringe IV SCH ×3 (06:16→21:38)
--- NOTE | 2017-07-31 08:52 | PCM.NOTE ---
Date and Time: 07/31/17 0851 Subjective Assessment: doing ok - Review of Systems Constitutional: No Fever, No Chills Eyes: No Symptoms Ears, Nose, & Throat: No Symptoms Respiratory: No Cough, No Short Of Breath Cardiac: No Chest Pain, No Edema, No Syncope Abdominal/Gastrointestinal: No Abdominal Pain, No Nausea, No Vomiting, No Diarrhea Genitourinary Symptoms: No Dysuria Musculoskeletal: No Back Pain, No Neck Pain Skin: No Rash Neurological: No Dizziness, No Focal Weakness, No Sensory Changes Psychological: No Symptoms Endocrine: No Symptoms Hematologic/Lymphatic: No Symptoms Immunological/Allergic: No Symptoms Objective Exam General Appearance: no apparent distress, alert Neurologic Exam: alert, oriented x 3, cooperative, normal mood/affect, nml cerebellar function, sensation nml, No motor deficits Skin Exam: normal color, warm, dry Eye Exam: PERRL, EOMI, eyes nml inspection Ears, Nose, Throat Exam: normal ENT inspection, pharynx normal, moist mucous membranes Neck Exam: normal inspection, non-tender, supple, full range of motion Respiratory Exam: normal breath sounds, lungs clear, No respiratory distress Cardiovascular Exam: regular rate/rhythm, normal heart sounds Gastrointestinal/Abdomen Exam: soft, No tenderness, No mass Extremity Exam: normal inspection, normal range of motion Back Exam: normal inspection, normal range of motion, No CVA tenderness, No vertebral tenderness Male Genitalia Exam: deferred Rectal Exam: deferred OBJECTIVE DATA Vital Signs: Vital Signs - 24 hr Temp Pulse Resp BP Pulse Ox 07/31/17 07:33 98.2 F 67 18 137/77 95 07/30/17 19:58 97.8 F 70 18 126/59 96 07/30/17 15:29 98 F 66 20 126/66 95 07/30/17 13:31 98.1 F 62 20 136/67 96 Pain Assessment - Last Documented Pain Scale Used 0-10 Pain Scale Intake and Output: Intake & Output 07/28/17 07/29/17 07/30/17 07/31/17 11:59 11:59 11:59 11:59 Intake Total 980 Output Total 400 Balance 580 Weight 70.2 kg Lab Results: Lab Results-Last 24 Hours 07/30/17 Range/Units 16:45 Ur Collection Type CLEAN CATCH Urine Color YELLOW (YELLOW) Urine Appearance CLEAR (CLEAR) Urine pH 7.0 (5-6) Ur Specific [place] 1.010 (1.005-1.025) Urine Protein NEGATIVE (Negative) Urine Ketones NEGATIVE (NEGATIVE) Urine Blood 250 (0-5) Yimi/ul Urine Nitrite NEGATIVE (NEGATIVE) Urine Bilirubin NEGATIVE (NEGATIVE) Urine Urobilinogen NORMAL (0-1) mg/dL Ur Leukocyte Esterase NEGATIVE (NEGATIVE) Urine Microscopic RBC 50-100 (0-2) /HPF Urine Glucose NEGATIVE (NEGATIVE) mg/dL Specimen Received 07/30/17 1645 Multi-Disciplinary Progress Notes: Multi-Disciplinary Progress Notes 07/30/17 13:00 (created 07/30/17 13:01) Case Management Note by Peace Ramsey SPOKE WITH REP AT [facility]. PLAN FOR PT TO TRANSITION THERE ON DISCHARGE, HOWEVER NO MALE BEDS AVAILABLE TODAY. WILL LIKELY BE 2-3 DAYS. WILL PLAN FOR SWING BED TODAY UNTIL BED AVAIL AT [facility]. Initialized on 07/30/17 13:01 - END OF NOTE Assessment/Plan (1) Debility, unspecified Current Visit: Yes Status: Acute Code(s): R53.81 - OTHER MALAISE (2) Crescendo transient ischemic attacks Current Visit: No Status: Acute Onset Date: ~07/28/17 Qualifiers: Transient cerebral ischemia type: unspecified Qualified Code(s): G45.9 - Transient cerebral ischemic attack, unspecified (3) Left hemiparesis Current Visit: No Status: Resolved Code(s): G81.94 - HEMIPLEGIA, UNSPECIFIED AFFECTING LEFT NONDOMINANT SIDE
[2017-07-31] MEDS: PLAVIX 75 MG Tablet PO SCH (09:33)
[2017-07-31] MEDS: Aricept 10 MG PO SCH (09:33)
[2017-07-31] MEDS: Namenda 5 MG PO SCH ×2 (09:33→21:37)
[2017-07-31] MEDS: Risperdal 1 MG PO SCH (09:33)
[2017-07-31] MEDS: ROCEPHIN 1 Gm-D5w 50 ml Bag** 1 G/50 ML IVPB IV SCH (09:34)
[2017-07-31] MEDS: TIMOPTIC 0.5% 5 ML OPHTHALMIC OP SCH (09:34)
[2017-07-31] MEDS ORDERED: Aplisol ID SCH (10:00)
[2017-07-31] MEDS ORDERED: AMMONIA AROMATIC IH ONE (20:30)
[2017-08-01] MEDS: Sodium Chloride 0.9% 10 ML FLUSH Syringe IV SCH (06:50)
[2017-08-01 07:47] VITALS: BP 160/78; PULSE 64; O2SAT 94
--- NOTE | 2017-08-01 09:04 | PCM.NOTE ---
Date and Time: 08/01/17901 Subjective Assessment: doing better - Review of Systems Constitutional: No Fever, No Chills Eyes: No Symptoms Ears, Nose, & Throat: No Symptoms Respiratory: No Cough, No Short Of Breath Cardiac: No Chest Pain, No Edema, No Syncope Abdominal/Gastrointestinal: No Abdominal Pain, No Nausea, No Vomiting, No Diarrhea Genitourinary Symptoms: No Dysuria Musculoskeletal: No Back Pain, No Neck Pain Skin: No Rash Neurological: No Dizziness, No Focal Weakness, No Sensory Changes Psychological: No Symptoms Endocrine: No Symptoms Hematologic/Lymphatic: No Symptoms Immunological/Allergic: No Symptoms Objective Exam General Appearance: no apparent distress, alert Neurologic Exam: alert, oriented x 3, cooperative, normal mood/affect, motor deficits, sensory deficit, confusion, motor weakness Skin Exam: normal color, warm, dry Eye Exam: PERRL, EOMI, eyes nml inspection Ears, Nose, Throat Exam: normal ENT inspection, pharynx normal, moist mucous membranes Neck Exam: normal inspection, non-tender, supple, full range of motion Respiratory Exam: normal breath sounds, lungs clear, No respiratory distress Cardiovascular Exam: regular rate/rhythm, normal heart sounds Gastrointestinal/Abdomen Exam: soft, No tenderness, No mass Extremity Exam: normal inspection, normal range of motion Back Exam: normal inspection, normal range of motion, No CVA tenderness, No vertebral tenderness Male Genitalia Exam: deferred Rectal Exam: deferred OBJECTIVE DATA Vital Signs: Vital Signs - 24 hr Temp Pulse Resp BP Pulse Ox 08/01/17 07:47 98.7 F 64 18 160/78 94 L 07/31/17 19:42 99.6 F 71 20 137/67 95 Pain Assessment - Last Documented Pain Scale Used [facility] Intake and Output: Intake & Output 07/29/17 07/30/17 07/31/17 08/01/17 11:59 11:59 11:59 11:59 Intake Total 980 510 Output Total 400 Balance 580 510 Weight 70.2 kg Multi-Disciplinary Progress Notes: Multi-Disciplinary Progress Notes 07/31/17 09:10 (created 07/31/17 09:30) Case Management Note by Peace Ramsey DR. ROUNDED AND EVALUATED, NO CHANGE IN CURRENT TREATMENT PLAN. FAMILY PLAN FOR PT TO TRANSITION TO [facility] WHEN MALE BED AVAILABLE. NO ADDNL DISCHARGE NEEDS NOTED AT PRESENT. WILL FOLLOW. Initialized on 07/31/17 09:30 - END OF NOTE Assessment/Plan (1) Left hemiparesis Current Visit: No Status: Resolved Code(s): G81.94 - HEMIPLEGIA, UNSPECIFIED AFFECTING LEFT NONDOMINANT SIDE (2) Crescendo transient ischemic attacks Current Visit: No Status: Acute Onset Date: ~07/28/17 Qualifiers: Transient cerebral ischemia type: unspecified Qualified Code(s): G45.9 - Transient cerebral ischemic attack, unspecified (3) Debility, unspecified Current Visit: Yes Status: Acute Code(s): R53.81 - OTHER MALAISE (4) Vascular dementia without behavioral disturbance Current Visit: Yes Status: Acute Assessment & Plan: Patient is namenda and aricept, stable Code(s): F01.50 - VASCULAR DEMENTIA WITHOUT BEHAVIORAL DISTURBANCE
[2017-08-01] MEDS: ROCEPHIN 1 Gm-D5w 50 ml Bag** 1 G/50 ML IVPB IV SCH (09:52)
[2017-08-01] MEDS: Risperdal 1 MG PO SCH (09:52)
[2017-08-01] MEDS: Aricept 10 MG PO SCH (09:52)
[2017-08-01] MEDS: Namenda 5 MG PO SCH (09:52)
[2017-08-01] MEDS: PLAVIX 75 MG Tablet PO SCH (09:53)
[2017-08-01] MEDS: TIMOPTIC 0.5% 5 ML OPHTHALMIC OP SCH (09:53)
[2017-08-11] MEDS ORDERED: Aplisol ID SCH (10:00)
== END 2017-08-01 11:20 | DRG 948 ==
LOC: MED SURG 12:30 → MERGE 12:30
PROVIDERS: ADMIT General Practice; ATTEND General Practice
DX: R53.81 Other malaise (principal); G45.9 Transient cerebral ischemic attack, unspecified; G81.94 Hemiplegia, unspecified affecting left nondominant side; F01.50 Vascular dementia, unspecified severity, without behavioral disturbance, psychotic disturbance, mood disturbance, and anxiety
CPT/HCPCS: 81000; J0696; A9270-GY

== ENCOUNTER 2018-02-27 10:51 | Inpatient (IN) | payer MEDICARE ==
[2018-02-27] MEDS ORDERED: Risperdal 1 MG PO SCH (13:00)
[2018-02-27 13:07] LABS: BASOPHIL % 0.2 % (0.0-0.4); Basophil (Absolute #) 0.02 (0-0.4); Eosinophil % 1.2 % (0.00-5.0); Eosinophil (Absolute #) 0.14 (0-0.5); Granulocyte Absolute (ANC) 10.06 (1.4-6.9); Granulocytes % 82.5 % (36.0-66.0); Hematocrit 45.1 % (42-50); Hemoglobin 14.1 gm/dl (12.5-18.0); Lymphocyte (Absolute #) 1.09 (1.0-4.6); Mean Cell Volume 99.8 fl (78-100); Mean Corpuscular Hemoglobin 31.2 pg (26-32); Mean Corpuscular Hgb Concent. 31.3 g/dl (32-36); Mean Platelet Volume 11.4 fl (6-9.5); Monocyte (Absolute #) 0.86 (0.0-1.3); Monocytes % 7.1 % (0.0-12.0); Platelet Count 410 K/mm3 (150-450); Red Blood Count 4.52 M/mm3 (4.1-5.6); Red Cell Distribution Width 14.7 % (11.5-14.0); White Blood Count 12.2 K/mm3 (4.0-10.5)
[2018-02-27 13:09] LABS: ALBUMIN 3.7 g/dL (3.5-5.0); ALKALINE PHOSPHATASE 134 U/L (38-126); ANION GAP 11.8 MEQ/L (5-15); BLOOD UREA NITROGEN 11 mg/dL (9-20); CHLORIDE 105 mmol/L (98-107); Calcium 9.1 mg/dL (8.4-10.2); Carbon Dioxide 29 mmol/L (22-30); Creatinine 1 0.91 mg/dL (0.66-1.25); Glucose 119 mg/dL (74-106); Potassium 3.6 mmol/L (3.5-5.1); SGOT/AST 16 U/L (17-59); SGPT/ALT 10 U/L (0-50); SODIUM 142 mmol/L (137-145); Total Protein 7.1 g/dL (6.3-8.2)
--- NOTE | 2018-02-27 14:33 | XRAY ---
Indication: Weakness. Comparison: July 27, 2017. AP/lateral chest demonstrates new subtle inferior right upper and possibly right lower lobe, infiltrate versus atelectasis. Remaining heart and lungs unremarkable. Bony thorax intact again with osteopenia and degenerative changes.
[2018-02-27] MEDS: Namenda 5 MG PO SCH ×2 (14:46→23:35)
[2018-02-27] MEDS: Sodium Chloride 0.9% 1000 ML 1,000 ML IV SCH (14:46)
[2018-02-27] MEDS: ROCEPHIN 1 Gm-D5w 50 ml Bag** 1 G/50 ML IVPB IV SCH (14:46)
[2018-02-27 16:17] LABS: Slide Review 1 YES
[2018-02-27] MEDS ORDERED: MEMANTINE HCL 28 MG PO SCH (22:00)
[2018-02-27] MEDS: Aricept 10 MG PO SCH (23:35)
[2018-02-27] MEDS: TIMOPTIC 0.5% 5 ML OPHTHALMIC OP SCH (23:36)
[2018-02-28] MEDS: Sodium Chloride 0.9% 1000 ML 1,000 ML IV SCH ×2 (02:37→18:10)
[2018-02-28 08:57] LABS: Appearance CLEAR (CLEAR); Bilirubin NEGATIVE (NEGATIVE); Blood MODERATE Ery/ul (0-5); Glucose NEGATIVE (NEGATIVE); Ketones NEGATIVE (NEGATIVE); Leukocyte Esterase NEGATIVE (NEGATIVE); Mucus SLIGHT /HPF (NEGATIVE); Nitrite NEGATIVE (NEGATIVE); Protein,Urine Dip NEGATIVE (Negative); RBC 51-100 /HPF (0-2); Specific Gravity 1.021 (1.005-1.025); Urobilinogen NEGATIVE mg/dL (0-1)
[2018-02-28 09:07] LABS: Hematocrit 40.3 % (42-50); Hemoglobin 12.5 gm/dl (12.5-18.0); Mean Platelet Volume 10.5 fl (6-9.5); Platelet Count 359 K/mm3 (150-450); Red Blood Count 4.03 M/mm3 (4.1-5.6); Red Cell Distribution Width 14.4 % (11.5-14.0)
[2018-02-28 09:08] LABS: Bacteria FEW /HPF (NEGATIVE); WBC 0-2 /HPF (0-5)
[2018-02-28 09:25] LABS: ANION GAP 9.8 MEQ/L (5-15); BLOOD UREA NITROGEN 8 mg/dL (9-20); CHLORIDE 109 mmol/L (98-107); Calcium 8.3 mg/dL (8.4-10.2); Carbon Dioxide 29 mmol/L (22-30); Creatinine 1 0.76 mg/dL (0.66-1.25); Glucose 94 mg/dL (74-106); Potassium 3.4 mmol/L (3.5-5.1); SODIUM 144 mmol/L (137-145)
[2018-02-28] MEDS: ROCEPHIN 1 Gm-D5w 50 ml Bag** 1 G/50 ML IVPB IV SCH (09:40)
[2018-02-28] MEDS: Namenda 5 MG PO SCH ×2 (09:42→21:56)
--- NOTE | 2018-02-28 15:22 | PCM.NOTE ---
Date and Time: 02/28/18 1520 Subjective Assessment: doing ok - Review of Systems Constitutional: Lethargy, No Fever, No Chills Eyes: No Symptoms Ears, Nose, & Throat: No Symptoms Respiratory: No Cough, No Short Of Breath Cardiac: No Chest Pain, No Edema, No Syncope Abdominal/Gastrointestinal: No Abdominal Pain, No Nausea, No Vomiting, No Diarrhea Genitourinary Symptoms: No Dysuria Musculoskeletal: No Back Pain, No Neck Pain Skin: No Rash Neurological: No Dizziness, No Focal Weakness, No Sensory Changes Psychological: No Symptoms Endocrine: No Symptoms Hematologic/Lymphatic: No Symptoms Immunological/Allergic: No Symptoms OBJECTIVE DATA Vital Signs: Vital Signs - 24 hr Temp Pulse Resp BP Pulse Ox 02/28/18 11:41 97.6 F 60 18 159/75 98 02/28/18 08:00 97.8 F 64 16 142/72 98 02/28/18 04:15 98.6 F 64 16 139/74 95 02/28/18 00:21 98.3 F 83 18 137/73 94 L 02/27/18 19:25 99.7 F 102 H 18 126/73 95 02/27/18 16:17 97.8 F 74 18 126/68 95 Pain Assessment - Last Documented Pain Intensity 0 Pain Scale Used 0-10 Pain Scale Intake and Output: Intake & Output 02/26/18 02/27/18 02/28/18 03/01/18 11:59 11:59 11:59 11:59 Intake Total 1365 240 Output Total 400 Balance 965 240 Weight 58.5 kg Lab Results: Lab Results-Last 24 Hours 02/27/18 02/28/18 02/28/18 Range/Units 12:55 08:51 08:57 WBC 10.0 (4.0-10.5) K/mm3 RBC 4.03 L (4.1-5.6) M/mm3 Hgb 12.5 (12.5-18.0) gm/dl Hct 40.3 L (42-50) % MCV 100.0 (78-100) fl MCH 31.0 (26-32) pg MCHC 31.0 L (32-36) g/dl RDW 14.4 H (11.5-14.0) % Plt Count 359 (150-450) K/mm3 MPV 10.5 H (6-9.5) fl Sodium (137-145) mmol/L Potassium (3.5-5.1) mmol/L Chloride (98-107) mmol/L Carbon Dioxide (22-30) mmol/L Anion Gap (5-15) MEQ/L BUN (9-20) mg/dL Creatinine (0.66-1.25) mg/dL Estimated GFR ML/MIN Glucose (74-106) mg/dL Calcium (8.4-10.2) mg/dL Urine Color YELLOW (YELLOW) Urine Appearance CLEAR (CLEAR) Urine pH 6.0 (5-6) Ur Specific [place] 1.021 (1.005-1.025) Urine Protein NEGATIVE (Negative) Urine Ketones NEGATIVE (NEGATIVE) Urine Blood MODERATE (0-5) Yimi/ul Urine Nitrite NEGATIVE (NEGATIVE) Urine Bilirubin NEGATIVE (NEGATIVE) Urine Urobilinogen NEGATIVE (0-1) mg/dL Ur Leukocyte Esterase NEGATIVE (NEGATIVE) Urine WBC (Auto) 0-2 (0-5) /HPF Urine RBC (Auto) 51-100 (0-2) /HPF U Epithel Cells (Auto) NONE (FEW) /HPF Urine Bacteria (Auto) FEW (NEGATIVE) /HPF Urine Mucus (Auto) SLIGHT (NEGATIVE) /HPF Urine Culture Reflexed NO (NO) Urine Glucose NEGATIVE (NEGATIVE) mg/dL Slides for Path Review YES 02/28/18 Range/Units 08:57 WBC (4.0-10.5) K/mm3 RBC (4.1-5.6) M/mm3 Hgb (12.5-18.0) gm/dl Hct (42-50) % MCV (78-100) fl MCH (26-32) pg MCHC (32-36) g/dl RDW (11.5-14.0) % Plt Count (150-450) K/mm3 MPV (6-9.5) fl Sodium 144 (137-145) mmol/L Potassium 3.4 L (3.5-5.1) mmol/L Chloride 109 H (98-107) mmol/L Carbon Dioxide 29 (22-30) mmol/L Anion Gap 9.8 (5-15) MEQ/L BUN 8 L (9-20) mg/dL Creatinine 0.76 (0.66-1.25) mg/dL Estimated GFR > 60.0 ML/MIN Glucose 94 (74-106) mg/dL Calcium 8.3 L (8.4-10.2) mg/dL Urine Color (YELLOW) Urine Appearance (CLEAR) Urine pH (5-6) Ur Specific [place] (1.005-1.025) Urine Protein (Negative) Urine Ketones (NEGATIVE) Urine Blood (0-5) Yimi/ul Urine Nitrite (NEGATIVE) Urine Bilirubin (NEGATIVE) Urine Urobilinogen (0-1) mg/dL Ur Leukocyte Esterase (NEGATIVE) Urine WBC (Auto) (0-5) /HPF Urine RBC (Auto) (0-2) /HPF U Epithel Cells (Auto) (FEW) /HPF Urine Bacteria (Auto) (NEGATIVE) /HPF Urine Mucus (Auto) (NEGATIVE) /HPF Urine Culture Reflexed (NO) Urine Glucose (NEGATIVE) mg/dL Slides for Path Review Radiology Exams: Radiology Procedures Category Date Time Status CHEST 2 VIEWS (PA AND LAT) Routine Exams 02/27/18 13:30 Completed Assessment/Plan (1) Acute pyelonephritis Current Visit: Yes Status: Acute Assessment & Plan: Last Vital Signs Temp 97.6 F 02/28/18 11:41 Pulse 60 02/28/18 11:41 Resp 18 02/28/18 11:41 BP 159/75 02/28/18 11:41 Pulse Ox 98 02/28/18 11:41 Allergies No Known Drug Allergies Allergy (Unverified 08/01/17 08:12) Active Medications Donepezil HCl (Aricept 10 Mg) 10 mg PO HS [facility] Stop: 03/29/18 21:59 Last Admin: 02/27/18 23:35 Dose: 10 mg Ceftriaxone Sodium/Dextrose (Rocephin 1 Gm-D5w 50 Ml Bag) 1 g in 50 mls @ 100 mls/hr IV Q24H10 EMILY Stop: 03/29/18 13:59 Last Admin: 02/28/18 09:40 Dose: 100 mls/hr Sodium Chloride (Sodium Chloride 0.9% 1000 Ml) 1,000 mls @ 80 mls/hr IV .[id number] EMILY Stop: 03/29/18 12:59 Last Admin: 02/28/18 02:37 Dose: 80 mls/hr Memantine (Namenda 5 Mg) 10 mg PO BID EMILY Stop: 03/29/18 12:59 Last Admin: 02/28/18 09:42 Dose: 10 mg Risperidone (Risperdal 1 Mg) 1 mg PO Q48H [facility] Stop: 03/30/18 21:59 Timolol Maleate (Timoptic 0.5% 5 Ml Ophthalmic) 0 ml OP HS [facility] Stop: 03/29/18 21:59 Last Admin: 02/27/18 23:36 Dose: 1 ml Intake & Output 02/28/18 03/01/18 11:59 11:59 Intake Total 1365 240 Output Total 400 Balance 965 240 Weight 58.5 kg Orders 02/27/18 22:00 Donepezil HCl 10 mg [Aricept 10 MG] 10 mg PO HS Timolol Maleate 0.5% Eye [Timoptic 0.5% 5 ml Ophthalmic] 0 ml OP HS 02/27/18 Dinner Regular Diet 02/28/18 09:00 Catheter Care Record Q6H [facility] [Catheter-[place] [facility]] STAT 02/28/18 22:00 Risperidone 1 mg [Risperdal 1 MG] 1 mg PO Q48H Lab Tests 02/27/18 02/28/18 02/28/18 12:55 08:51 08:57 WBC 10.0 RBC 4.03 L Hgb 12.5 Hct 40.3 L MCV 100.0 MCH 31.0 MCHC 31.0 L RDW 14.4 H Plt Count 359 MPV 10.5 H Sodium Potassium Chloride Carbon Dioxide Anion Gap BUN Creatinine Estimated GFR Glucose Calcium Urine Color YELLOW Urine Appearance CLEAR Urine pH 6.0 Ur Specific [place] 1.021 Urine Protein NEGATIVE Urine Ketones NEGATIVE Urine Blood MODERATE Urine Nitrite NEGATIVE Urine Bilirubin NEGATIVE Urine Urobilinogen NEGATIVE Ur Leukocyte Esterase NEGATIVE Urine WBC (Auto) 0-2 Urine RBC (Auto) 51-100 U Epithel Cells (Auto) NONE Urine Bacteria (Auto) FEW Urine Mucus (Auto) SLIGHT Urine Culture Reflexed NO Urine Glucose NEGATIVE Slides for Path Review YES 02/28/18 08:57 WBC RBC Hgb Hct MCV MCH MCHC RDW Plt Count MPV Sodium 144 Potassium 3.4 L Chloride 109 H Carbon Dioxide 29 Anion Gap 9.8 BUN 8 L Creatinine 0.76 Estimated GFR > 60.0 Glucose 94 Calcium 8.3 L Urine Color Urine Appearance Urine pH Ur Specific [place] Urine Protein Urine Ketones Urine Blood Urine Nitrite Urine Bilirubin Urine Urobilinogen Ur Leukocyte Esterase Urine WBC (Auto) Urine RBC (Auto) U Epithel Cells (Auto) Urine Bacteria (Auto) Urine Mucus (Auto) Urine Culture Reflexed Urine Glucose Slides for Path Review Code(s): N10 - ACUTE PYELONEPHRITIS (2) Vascular dementia without behavioral disturbance Current Visit: No Status: Acute Code(s): F01.50 - VASCULAR DEMENTIA WITHOUT BEHAVIORAL DISTURBANCE
[2018-02-28] MEDS: Aricept 10 MG PO SCH (21:56)
[2018-02-28] MEDS ORDERED: Risperdal 1 MG PO SCH (22:00)
[2018-02-28] MEDS: TIMOPTIC 0.5% 5 ML OPHTHALMIC OP SCH (22:01)
[2018-03-01] MEDS: Sodium Chloride 0.9% 1000 ML 1,000 ML IV SCH ×2 (06:13→19:17)
[2018-03-01] MEDS: Namenda 5 MG PO SCH ×2 (10:57→22:04)
[2018-03-01] MEDS: ROCEPHIN 1 Gm-D5w 50 ml Bag** 1 G/50 ML IVPB IV SCH (10:57)
--- NOTE | 2018-03-01 12:20 | PCM.NOTE ---
Date and Time: 03/01/18 1219 Subjective Assessment: doing ok , plan to send him to [facility] - Review of Systems Constitutional: No Fever, No Chills Eyes: No Symptoms Ears, Nose, & Throat: No Symptoms Respiratory: No Cough, No Short Of Breath Cardiac: No Chest Pain, No Edema, No Syncope Abdominal/Gastrointestinal: No Abdominal Pain, No Nausea, No Vomiting, No Diarrhea Genitourinary Symptoms: No Dysuria Musculoskeletal: No Back Pain, No Neck Pain Skin: No Rash Neurological: No Dizziness, No Focal Weakness, No Sensory Changes Psychological: No Symptoms Endocrine: No Symptoms Hematologic/Lymphatic: No Symptoms Immunological/Allergic: No Symptoms Objective Exam General Appearance: no apparent distress, alert Neurologic Exam: alert, oriented x 3, cooperative, normal mood/affect, nml cerebellar function, sensation nml, No motor deficits Skin Exam: normal color, warm, dry Eye Exam: PERRL, EOMI, eyes nml inspection Ears, Nose, Throat Exam: normal ENT inspection, pharynx normal, moist mucous membranes Neck Exam: normal inspection, non-tender, supple, full range of motion Respiratory Exam: normal breath sounds, lungs clear, No respiratory distress Cardiovascular Exam: regular rate/rhythm, normal heart sounds Gastrointestinal/Abdomen Exam: soft, No tenderness, No mass Extremity Exam: normal inspection, normal range of motion Back Exam: normal inspection, normal range of motion, No CVA tenderness, No vertebral tenderness Male Genitalia Exam: deferred Rectal Exam: deferred OBJECTIVE DATA Vital Signs: Vital Signs - 24 hr Temp Pulse Resp BP Pulse Ox 03/01/18 07:28 98.1 F 82 18 138/68 96 03/01/18 04:02 98.0 F 56 L 16 128/75 98 03/01/18 00:00 98.8 F 63 18 153/73 96 02/28/18 20:00 98.4 F 83 16 158/77 96 02/28/18 16:00 98 F 64 18 147/73 99 Pain Assessment - Last Documented Pain Intensity 0 Pain Scale Used 0-10 Pain Scale Intake and Output: Intake & Output 02/27/18 02/28/18 03/01/18 03/02/18 11:59 11:59 11:59 11:59 Intake Total 1365 2780 Output Total 400 1050 Balance 965 1730 Weight 58.5 kg Radiology Exams: Radiology Procedures Category Date Time Status CHEST 2 VIEWS (PA AND LAT) Routine Exams 02/27/18 13:30 Completed Assessment/Plan (1) Acute pyelonephritis Current Visit: Yes Status: Acute Assessment & Plan: improving Code(s): N10 - ACUTE PYELONEPHRITIS (2) Vascular dementia without behavioral disturbance Current Visit: No Status: Acute Code(s): F01.50 - VASCULAR DEMENTIA WITHOUT BEHAVIORAL DISTURBANCE
[2018-03-01] MEDS: Aricept 10 MG PO SCH (22:04)
[2018-03-01] MEDS: TIMOPTIC 0.5% 5 ML OPHTHALMIC OP SCH (22:05)
[2018-03-02] MEDS: Sodium Chloride 0.9% 1000 ML 1,000 ML IV SCH (08:13)
[2018-03-02] MEDS: Namenda 5 MG PO SCH (09:04)
[2018-03-02] MEDS: ROCEPHIN 1 Gm-D5w 50 ml Bag** 1 G/50 ML IVPB IV SCH (09:50)
--- NOTE | 2018-03-02 13:39 | PCM.DS ---
Discharge Summary Date of Admission: 02/27/18 11:13 Admitting Physician: JACKIE MARTINEZ Primary Care Provider: JACKIE MARTINEZ Allergies Allergies No Known Drug Allergies Allergy (Unverified 08/01/17 08:12) Hospital Summary - Hospital Course Hospital Course: Chief Complaint Diagnosis Pyelonephritis Allergies Allergy/AdvReac Type Severity Reaction Status Date / Time No Known Drug Allergies Allergy Unverified 08/01/17 08:12 Vital Signs (Last 24 hours) Temp Pulse Resp BP Pulse Ox 03/02/18 11:47 98.5 F 67 16 131/66 03/02/18 07:44 98.4 F 57 L 18 113/58 94 L 03/02/18 04:20 98.0 F 60 15 143/72 96 03/02/18 00:00 98.1 F 73 16 132/61 95 03/01/18 20:05 98.4 F 76 18 156/70 96 03/01/18 16:16 98 F 58 L 18 120/56 95 Home Medications Medication Instructions Recorded Confirmed Last Taken Type Cephalexin [Keflex] 500 mg PO QID #20 capsule 03/02/18 Unknown Rx Current Medications Generic Name Dose Route Start Last Admin Trade Name Dileepq PRN Reason Stop Dose Admin Donepezil HCl 10 mg 02/27/18 22:00 03/01/18 22:04 Aricept 10 Mg PO 03/29/18 21:59 10 mg HS EMILY Administration Ceftriaxone Sodium/Dextrose 1 g in 50 mls @ 100 mls/hr 02/27/18 14:00 09:50 Rocephin 1 Gm-D5w 50 Ml Bag IV 03/29/18 13:59 100 mls/hr Q24H10 EMILY Administration Sodium Chloride 1,000 mls @ 80 mls/hr 02/27/18 13:00 03/02/18 08:13 Sodium Chloride 0.9% 1000 Ml IV 03/29/18 12:59 80 mls/hr .[id number] EMILY Administration Memantine 10 mg 02/27/18 13:00 03/02/18 09:04 Namenda 5 Mg PO 03/29/18 12:59 10 mg BID EMILY Administration Risperidone 1 mg 02/28/18 22:00 02/28/18 21:56 Risperdal 1 Mg PO 03/30/18 21:59 1 mg Q48H EMILY Administration Timolol Maleate 0 ml 02/27/18 22:00 03/01/18 22:05 Timoptic 0.5% 5 Ml Ophthalmic OP 03/29/18 21:59 1 ml HS EMILY Administration Discontinued Medications Generic Name Dose Route Start Last Admin Trade Name Dileepq PRN Reason Stop Dose Admin Influenza Virus Vaccine 180 mcg 02/28/18 10:00 02/28/18 09:41 Fluzone High-Dose Syr IM 02/28/18 10:01 180 mcg .ONCE ONE Administration Risperidone 1 mg 02/27/18 13:00 Risperdal 1 Mg PO 03/29/18 12:59 UD EMILY Intake & Output (Last 24 hours) 02/28/18 03/01/18 03/02/18 03/03/18 11:59 11:59 11:59 11:59 Intake Total 1365 2780 3553 400 Output Total 400 1050 2150 Balance 965 1730 1403 400 Weight 58.5 kg 58.5 kg Microbiology Results (Last 24 hours) 02/27/18 12:55 Blood Blood Culture Gram Stain - Pending 02/27/18 12:55 Blood Blood Culture - Preliminary NO GROWTH TO DATE 03/01/18 08:51 Urine, Indwelling Catheter Urine Culture - Pending Orders (Last 24 hours) Category Date Time Status Ensure Diet 03/01/18 Dinner Active Discharge Routine Discharge 03/02/18 Ordered Patient Care Notes (Last 24 hours) 03/02/18 11:54 Nursing Note by Lisa García Reposition patient for breakfast. Patient ate only small amount drank all his ensure. Had a small bm, and gave a complete bed bath. Changed into a clean gown and depend also put barrier ointment on pressure sore on right hip. condition of the sore is pinkish in color and crusty to touch. Recorded vitals obtained at 1105. patient was cooperative and alert when awake. [email or web address]-student services counselor 1 Initialized on 03/02/18 11:54 - END OF NOTE - Vitals & Intake/Output Vital Signs: Vital Signs Temperature 98.5 F 03/02/18 11:47 Pulse Rate 67 03/02/18 11:47 Respiratory Rate 16 03/02/18 11:47 Blood Pressure 131/66 03/02/18 11:47 O2 Sat by Pulse Oximetry 94 L 03/02/18 07:44 Intake & Output: Intake & Output 02/28/18 03/01/18 03/02/18 03/03/18 11:59 11:59 11:59 11:59 Intake Total 1365 2780 3553 400 Output Total 400 1050 2150 Balance 965 1730 1403 400 Weight 58.5 kg 58.5 kg - Lab Result Diagrams: 02/28/18 08:57 02/28/18 08:57 Micro Results-Entire Visit: Microbiology 02/27/18 12:55 Blood Culture - Preliminary Blood NO GROWTH TO DATE - Procedures and Test Procedures and Tests throughout Hospitalization: Therapy Orders & Screens 02/27/18 13:47 PT Screen per Nursing Assess ONCE Comment: Protocol Order Physician Instructions: Greater than 3 points order PT Admission Screenin Reason For Exam: Triggered on Admission Diagnosis: Pyelonephritis Open Wound/Cellutlitis/Pressure Ulcers: Yes Acute Fx/ORIF/Change in wt bearing status: Yes Severe MUSCULOSKELETAL pain: No ADL Dysfunction: Yes Acute CVA w/Hemiparesis/Hemiplegia: No Decreased Functional Mobility/Strength: Yes Sprain/Strain: No Acute Post-op Mobility Dysfunction: No Total Points: 14 Discharge Exam General Appearance: no apparent distress, alert Neurologic Exam: alert, oriented x 3, cooperative, normal mood/affect, nml cerebellar function, sensation nml, No motor deficits Skin Exam: normal color, warm, dry Eye Exam: PERRL, EOMI, eyes nml inspection Ears, Nose, Throat Exam: normal ENT inspection, pharynx normal, moist mucous membranes Neck Exam: normal inspection, non-tender, supple, full range of motion Respiratory Exam: normal breath sounds, lungs clear, No respiratory distress Cardiovascular Exam: regular rate/rhythm, normal heart sounds Gastrointestinal/Abdomen Exam: soft, No tenderness, No mass Extremity Exam: normal inspection, normal range of motion Back Exam: normal inspection, normal range of motion, No CVA tenderness, No vertebral tenderness Male Genitalia Exam: deferred Rectal Exam: deferred Final Diagnosis/Problem List - Final Discharge Diagnosis/Problem (1) Acute pyelonephritis Current Visit: Yes Status: Resolved (2) Vascular dementia without behavioral disturbance Current Visit: Yes Status: Chronic - Discharge Discharge Date: 03/02/18 Disposition: DC TO [facility] Condition: Stable Prescriptions: New Cephalexin [Keflex] 500 mg PO QID #20 capsule Continue Risperidone 1 mg [Risperdal 1 MG] 1 mg PO UD Memantine HCl [Memantine HCl ER] 28 mg PO HS Donepezil HCl 10 mg [Aricept 10 MG] 10 mg PO HS Timolol Maleate [Timoptic] 5 ml OP HS Additional Instructions: [facility] ORDERS: PT/OT EVAL AND TREAT SEE ATTACHED MED LIST FOR CURRENT MED ORDERS REGULAR DIET WITH ENSURE TID RX: CEPHALEXIN 500MG PO QID X 5 DAYS Follow up with: JACKIE MARTINEZ MD [Primary Care Provider] - 1 Week
[2018-03-02 16:27] VITALS: BP 178/88; PULSE 85; O2SAT 95
== END 2018-03-02 17:15 | DRG 690 ==
LOC: OBSVTOIN 11:13 → MED SURG 11:13
PROVIDERS: ADMIT General Practice; ATTEND General Practice
DX: N10 Acute pyelonephritis (principal); F02.80 Dementia in other diseases classified elsewhere, unspecified severity, without behavioral disturbance, psychotic disturbance, mood disturbance, and anxiety; F01.50 Vascular dementia, unspecified severity, without behavioral disturbance, psychotic disturbance, mood disturbance, and anxiety; I48.91 Unspecified atrial fibrillation; I25.10 Atherosclerotic heart disease of native coronary artery without angina pectoris; J44.9 Chronic obstructive pulmonary disease, unspecified; R41.841 Cognitive communication deficit; G30.9 Alzheimer's disease, unspecified; Z79.899 Other long term (current) drug therapy
CPT/HCPCS: 36415; 71046; 80048; 80053; 81001; 84134; 85025; 85027; 87040; 87086; G0008; 90662; J0696; A9270-GY